=== PATIENT | male | born 1995 | race Two or more races ===

== ENCOUNTER 2024-07-25 15:37 | Emergency (ER) | payer OTHER, SELFPAY ==
[2024-07-25 16:05] VITALS: BP 120/84
--- NOTE | 2024-07-25 17:57 | ED.GENMED ---
History of Present Illness
General
Chief Complaint: Musculo-Skeletal Complaint
Source: patient
Exam Limitations: none
Time Seen by Provider: 07/25/24 16:54
Nursing documentation reviewed up to this point in time: agreed with
History of Present Illness
History of Present Illness:
29-year-old male presenting to the emergency department today with concerns of dropping a marble countertop to his left foot causing bruising and swelling this happened yesterday ongoing discomfort today. Denies any numbness weakness or additional
concerns.
Past History
Past History
ED Past Medical History: None
ED Past Surgical History: None
Social History
Tobacco: Non-smoker
Personal:
Living: with family
Employment: Employed
Review of Systems
Review of Systems
Allergies reviewed?: Yes
All Other Systems: ROS reviewed and negative except as documented in HPI and ROS
Phy Exam
Physical Exam
Physical Exam:
GENERAL: Alert , in no apparent distress
EYE: pupils equal and reactive
NECK: Supple, no significant adenopathy.
ENT: o/p clr, mmm.
CARDIAC: Regular rate and rhythm .
LUNGS: Clear breath sounds bilaterally, no acute respiratory distress, no wheezes/rales/rhonchi
ABDOMEN: Soft, without focal tenderness, no r/g, no cvat
NEUROLOGICAL: Alert and oriented, no focal neuro deficits
SKIN: Warm and dry, skin intact.
MUSCULOSKELETAL: Bruising swelling and tenderness palpation to the lateral left midfoot no tenderness throughout the toes or the forefoot or the proximal portion of the foot. No discomfort to the ankle. No distal poikilothermia pulselessness or
pallor. Pain is not a proportion to appearance of bruising., well perfused.
PSYCH: Normal and appropriate interaction.
Course
Orders/Labs/Results
Orders:
Orders
07/25/24 16:07
Foot, Left 3 View [CR Foot - Left Min 3 Views] Urgent
Comment:
Reason For Exam: pain
Vital Signs
Initial and Last Documented VS:
Initial Vital Signs
Temp Pulse Resp BP Pulse Ox
98.4 F 76 18 120/84 98
07/25/24 16:05 07/25/24 16:05 07/25/24 16:05 07/25/24 16:05 07/25/24 16:05
Last Documented Vital Signs
Temp Pulse Resp BP Pulse Ox
98.4 F 77 20 131/78 98
07/25/24 16:05 07/25/24 18:09 07/25/24 18:09 07/25/24 18:07/25/24 18:09
MDM/Problems Addressed
MDM/Problems Addressed:
29-year-old male presenting to the emergency department today with concerns of discomfort to his left foot after dropping a piece of marble onto his foot. Here he has been able to walk but is limping. Has normal distal pulses cap refill to the
forefoot. No hardened compartments. X-ray without signs of fracture. Patient with likely soft tissue in. Stable for management. Return precautions given.
*Critical Care Note
Total Time (30-74mins, 75-104mins- exclusive of procedures): Not Applicable
ED Attending Note
-
Portions of this chart may have been created with voice recognition software.� Occasional wrong word or��sound alike� substitutions may have occurred due to the inherent limitations of voice recognition software.
Discharge Plan
Departure
Patient Disposition: Home (Routine Discharge)
Date of Disposition: 07/25/24
Time of Disposition: 17:57
Patient with high blood pressure during this ER visit?: No
Condition: Good
Covid-19: Not Applicable
Discharge Problem:
Traumatic ecchymosis of left foot
Instructions: Muscle and Bone Pain (DC)
Prescriptions:
No Action
penicillin V potassium 500 mg tablet
500 mg PO TID 10 Days Qty: 30 0RF
Referrals:
Milla Perkins DPM [Active] - Follow up in 5-7 days
NONE,* [Family Provider] -
Activity Restrictions/Additional Instructions:
You came to the emergency department today with concerns of an injury to your left foot. X-ray without signs of fracture. Please rest ice compress and elevate and follow-up closely with foot doctor if symptoms or not improving over the next few
days. Return to the emergency department for any worsening, new or concerning symptoms.
Interventions
Interventions:
*Risk Screen - Suicide Last Done: 07/25/24 18:09
*General Assessment Last Done: 07/25/24 18:09
*Neglect/Abuse Screening Last Done: 07/25/24 18:09
*ED COVID-19 Vaccine History Last Done: 07/25/24 18:09
*Nursing Disposition Last Done: 07/25/24 18:09
ED-Musculoskeletal Assessment Last Done: 07/25/24 18:08
Discharge Date and Time
Discharge Date/Time: 07/25/24 18:12
Print Language: [place]IZ[place]
[2024-07-25 18:09] VITALS: BP 131/78
== END 2024-07-25 18:12 | disposition home or self-care (01) ==
LOC: EMR 15:37
PROVIDERS: EMERGENCY PHYSICIAN Student in an Organized Health Care Education/Training Program
DX: S90.32XA Contusion of left foot, initial encounter (principal); M25.475 Effusion, left foot; R26.9 Unspecified abnormalities of gait and mobility; W20.8XXA Other cause of strike by thrown, projected or falling object, initial encounter
CPT/HCPCS: 99283; 73630